=== PATIENT | male | born 2000 | race Caucasian/White ===

== ENCOUNTER 2023-01-17 12:45 | Outpatient (RCR) | payer OTHER, SELFPAY ==
--- NOTE | 2022-12-16 13:49 | HO.PHP ---
12/06/2022 : This medical underwriter met with patient to complete an intake assessment for PHP treatment. This medical underwriter met with patient,explained PHP and discussed treatment,patient stated that he did not think PHP was appropriate for him and wanted to end the intake. Patient stated that if this had been in August,he would have engaged then,he stated that he does not feel he needs PHP level of care at this time. This medical underwriter provided him with information regarding the PHP treatment program and informed him that if he would like to engage in PHP in the future to please contact the program.
[2023-01-15 13:09] VITALS: BP 127/83; PULSE 50; TEMP 37.6
[2023-01-15 13:11] VITALS: BMI 24.2
--- NOTE | 2023-01-15 14:56 | PC.ADMIT ---
Patient is a 22 year old single male who self referred to PHP d/t increased depression sxs and passive SI, no plan or intent. He reports having issue with his mother who is always yelling at him thus is currently living with his grandmother and reports relationship issues with others. Reports when in high school and college his peers would make things up about him that were not true and his peers would believe it is true. This is quite distressing for him. Patient stated he feels at times that, Everybody hates me He did state, I got a few friends now . Has plans on going hiking with friend from kindergarten today. Patient is alert and oriented x4. Calm and cooperative. Appears irritable at times. Reports using cannabis though out the day started using at age 16. Stated he would like to cut down his use. Reports minimal ETOH use drinking 2 shots a couple times a month. Stated no history of binge drinking or blacking out (per integrative assessment). Patient also reports using hallucinogens about six times a year and reported history of using Ketamine. Reports passive SI, no plan or intent to kill himself. Patient given a copy of his safety plan if needed and I reviewed this with him. Medications reconciled with patient and pharmacy. He is currently not on any prescription medications. History of Lexapro in October, stopped d/t SI.
--- NOTE | 2023-01-16 08:37 | HO.PHP ---
The client called out . He sates that he didn't sleep well last night and can not imagine being able to stay awake during groups. He states that he is safe.
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
--- NOTE | 2023-01-17 08:08 | HO.PHP ---
The clients case was reviewed and opened in treatment team
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
--- NOTE | 2023-01-17 16:40 | HO.PHP ---
I sat with Jim to call his parents. They had left a message to call them for help with how they can best help Jim. We spoke with his father and Jim told his father that seeing his dog would be helpful. They made a plan that Jim go to his parents home for the weekend because his mother will be out of town. Jim thanked his dad and after the conversation looked less depressed and his affect was brighter.
--- NOTE | 2023-01-20 10:02 | HO.PHP ---
[facility] staff reached out to Jim, in which his phone went right to . [facility] staff left a asking Jim to contact the clinician back to verify he is safe due to him not showing up for program today.
--- NOTE | 2023-01-20 10:07 | HO.PHP ---
[facility] staff reached out to Jim's emergency contact, who is his father. Jim's father informed the clinician that Jim is currently awaiting a bed and is at [facility]. Jim's father explored if there is any way to expedite the bed search and asked if the clinician could go to the ED to talk to them about that. [facility] staff informed the father if he would like to follow up with the status regarding the bed placement, he would have to reach out. The father asked if we visit the clients when they go into inpatient level of care. PHP staff stated we do not and noted that is a higher level of care. [facility] staff voiced that if Jim is discharged back home today, then he can return to the program tomorrow. [facility] staff expressed if he goes into a higher level of care, he will be discharged from the program and they can contact the program back to be referred. The father explored if he would have to go through the intake again and waiting process. [facility] staff disclosed he would have to go through the intake and we will try to get him back into the program as quickly as possible. Jim's father shared his concerns around his sons mental health. [facility] empathized with the father and listened.
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
== END 2023-01-17 23:59 | disposition home or self-care (01) ==
LOC: HO.PHPA 12:45
PROVIDERS: Visit Provider Psychiatry & Neurology Psychiatry
DX: F33.2 Major depressive disorder, recurrent severe without psychotic features (principal); F12.20 Cannabis dependence, uncomplicated; F16.90 Hallucinogen use, unspecified, uncomplicated
CPT/HCPCS: 90791; 90853

== ENCOUNTER → 2023-01-17 12:45 | Outpatient (BNV) | payer OTHER, SELFPAY | PROVIDERS: Visit Provider Psychiatry & Neurology Psychiatry | DX: F33.2 Major depressive disorder, recurrent severe without psychotic features (principal); F12.20 Cannabis dependence, uncomplicated; F16.90 Hallucinogen use, unspecified, uncomplicated | CPT/HCPCS: 90792 ==

== ENCOUNTER 2023-01-18 15:30 | Inpatient (IN) | payer OTHER, SELFPAY ==
[2023-01-18 15:50] VITALS: BP 156/88; PULSE 56; RESP 18; TEMP 36.6; O2SAT 100; BMI 26.0
--- NOTE | 2023-01-18 16:37 | ED_ITS ---
HPI - Psych General Chief Complaint: Psychiatric Symptoms Stated Complaint: Crisis, SI Time Seen by Provider: 01/18/23 16:05 Source: patient Mode of arrival: EMS Limitations: no limitations History of Present Illness HPI Narrative: Patient comes to the emergency room via ambulance. Patient states that he has had a lot of resentment to a lot of people. Patient states that he would like to wipe them off the planet and then kill himself. Patient states that he would slit his wrist and jump of bridge. Patient states he has been having stresses at home. Patient has poor the [employer] with his mother. Patient lives with his grandmother. Related Data Home Medications Medication Instructions Recorded Confirmed No Known Home Meds 01/15/23 01/15/23 Allergies Allergy/AdvReac Type Severity Reaction Status Date / Time Sulfa (Sulfonamide Allergy Rash Verified 01/15/23 13:08 Antibiotics) Review of Systems Review of Systems: Constitutional : No Weight loss, No Fever, No Chills, No Night Sweats, No Fatigue, No Malaise ENT/Mouth : No Hearing loss, No Ear Pain, No Nasal Congestion, No Sinus Pain, No Hoarseness, No sore throat, No Rhinorrhea, No Swallowing Difficulty Eyes: No Eye Pain, No Swelling, No Redness, No Foreign Body, No Discharge, No Vision Changes Cardiovascular : No Chest Pain, No SOB, No Dyspnea on Exertion, No Orthopnea, No Edema, No Palpitations Respiratory : No Cough, No Sputum, No Wheezing, No Smoke Exposure, No Dyspnea Gastrointestinal : No Nausea, No Vomiting, No Diarrhea, No Constipation, No abdominal Pain, No Hematochezia, No Melena Genitourinary : no irregular bleeding, No Dysuria, No Urinary Frequency, No Hematuria, No Urinary Incontinence, No Urgency, No Flank Pain, No Urinary Flow Changes, No Hesitancy Musculoskeletal : No joint pain, No Myalgias, No Joint Swelling Skin : No Skin Lesions, No rash Neuro : No Weakness, No Numbness, No Paresthesias, No Loss of Consciousness, No Dizziness, No Headache Psych : Complaining of SI and HI Heme/Lymph: No Bruising, No Bleeding,No Lymphadenopathy Endocrine : No Polyuria, No Polydipsia, No Temperature Intolerance PMFSH Past Medical History Medical History (Updated 01/18/23 @ 16:41 by Jennifer Kemp MD) Cannabis use disorder, severe, dependence Generalized anxiety disorder Hallucinogen use Major depressive disorder, recurrent severe without psychotic features No known health problems Social History Social History Household Members: Other Household Members Other:: Grandparents Patient Tobacco Use Status: Current everyday Tobacco user Advance Directives: No Advance Directives Information Provided: Yes Physical Exam Vital Signs: Vital Signs: Last Vital Signs Temp 98 F 01/18/23 15:50 Pulse 56 01/18/23 15:50 Resp 18 01/18/23 15:50 BP 156/88 H 01/18/23 15:50 Pulse Ox 100 01/18/23 15:50 O2 Del Method Room Air 01/18/23 15:50 BMI result Body Mass Index 26.0 Const: Other: Appearance: Alert. Oriented X3. No acute distress. Eyes: Pupils equal, round and reactive to light. ENT: Pharynx normal. Neck: Normal inspection. Neck supple. No lymph nodes noted. No crepitus CVS: Normal heart rate and rhythm. Pulses normal. Normal S1 and S2 Respiratory: No respiratory distress. Breath sounds normal. No Wheezing. No rales Abdomen: Soft and nontender. No rigidity. No distention. Skin: Skin warm and dry. Normal skin color. Normal skin turgor. Extremities: No lower extremity edema. No Lacerations. No Rash Neuro: Oriented X 3. No motor deficit. No sensory deficit. Moving all extremities. No slurred speech. CN 2 through 12 grossly intact Psych: calm, cooperative, normal affect Course Course Course Narrative: -all of patient's labs are pending -patient is on a one-to-one, patient is on a Section 12 -care team consult pending -physician observation started at 16:39 Discharge Plan Discharge Clinical Impression: Major depressive disorder, recurrent severe without psychotic features Patient Disposition: Still a Patient Prescriptions: No Action No Known Home Meds
[2023-01-18 16:49] LABS: MANUAL DIFF FLAG NO
[2023-01-18 16:52] LABS: Basophils Percent Auto 0.5 % (0-2); Eosinophils Absolute Auto 0.1 X10*3/uL (0.0-0.4); Eosinophils Percent Auto 1.1 % (0-4); Hematocrit 41.5 % (42.0-52.0); Hemoglobin 14.6 g/dl (14.0-18.0); Imm Gran Abs Auto 0.02 X10*3/uL (0.00-0.03); Imm Gran Pct Auto 0.3 % (0.0-0.4); Lymphocytes Absolute Auto 2.2 X10*3/uL (1.2-4.9); Mean Corpuscular HGB Conc 35.2 g/dl (31.0-36.0); Mean Corpuscular Hemoglobin 30.6 pg (27.0-33.0); Mean Platelet Volume 9.7 fL (9.4-12.4); Monocytes Absolute Auto 0.5 X10*3/uL (0.1-1.2); Monocytes Percent Auto 6.6 % (2-11); Neutrophils Percent Auto 63.5 % (45-73); Platelet Count 237 X10*3/uL (160-400); Red Blood Count 4.77 X10*6/uL (4.60-5.80); Red Cell Distribution Width 12.3 % (11.0-16.0); White Blood Count 7.8 X10*3/uL (4.8-10.8)
[2023-01-18 17:05] LABS: Alanine Aminotransferase 12 U/L (0-40); Albumin Level 4.7 g/dL (3.5-5.0); Alkaline Phosphatase 64 U/L (39-117); Anion Gap 13 (12-20); Aspartate Amino Transferase 13 U/L (5-37); Bilirubin Direct 0.2 mg/dL (0.0-0.5); Bilirubin Total 0.5 mg/dL (0.0-1.0); Blood Urea Nitrogen 15 mg/dL (9-16); Calcium 9.8 mg/dL (8.4-10.2); Carbon Dioxide 26 mmol/L (22-29); Chloride 105 mmol/L (96-108); Estimated Glomerular Filt Rate > 60; Ethanol < 10 mg/dL; Glucose Random 89 mg/dL (60-115); Potassium 4.1 mmol/L (3.3-5.1); Sodium 140 mmol/L (135-145); Total Protein 7.6 g/dL (6.5-8.0)
[2023-01-18 17:47] VITALS: RESP 14
[2023-01-18 18:30] LABS: Amphetamine Screen Urine Not Detected (Not Detect); Barbiturates, Urine Not Detected (Not Detect); Benzodiazepines Screen Urine Not Detected (Not Detect); Cannabinoid Screen Urine POSITIVE (Not Detect); Cocaine Screen Urine Not Detected (Not Detect); Fentanyl, urine Not Detected (Not Detect); Opiate Screen Urine Not Detected (Not Detect); Phencyclidine Screen Urine Not Detected (Not Detect)
[2023-01-18] MEDS: LORazepam 1 MG TABLET 2 MG PO (19:22)
--- NOTE | 2023-01-18 19:26 | PC.NURSE ---
pt assessed, calm cooperative, medicated with ativan po, father at bedside
[2023-01-18 22:20] VITALS: BP 137/79; PULSE 58; RESP 14; TEMP 36.4; O2SAT 98
--- NOTE | 2023-01-18 23:32 | PC.NURSE ---
pt observed sleeping, sitter present
--- NOTE | 2023-01-19 01:26 | PC.NURSE ---
verbal report given to staff
--- NOTE | 2023-01-19 01:37 | MHC.EDTECH ---
belongings locked in locker #6.
--- NOTE | 2023-01-19 07:09 | PC.NURSE ---
Patient slept through the night, calm and cooperative, behavior non concerning, care consult ordered/pending evaluation, VSS, med rec completed/pending provider's approval, VSS, will continue to monitor.
--- NOTE | 2023-01-19 11:42 | MHC.CARE ---
RAD Team conducted an external [facility] bed search for this individual, however, there are no beds available across the state for today. The search is exhausted and will be revisted tomorrow if deemed necessary.
[2023-01-19 15:36] LABS: Appearance Urine Clear; Color Urine Yellow; Glucose Urine UA Negative (Negative); Leukocyte Esterase Urine Negative (Negative); Nitrite Urine Negative (Negative); Urine Blood Negative (Negative); Urine Ketones Negative (Negative); Urine Protein Negative (Neg-Trace)
[2023-01-19] MEDS: LORazepam 1 MG TABLET 2 MG PO (15:41)
[2023-01-19 15:56] LABS: COVID-19 Test Negative (Negative); IDNOW Serial# BCCEAD1C
[2023-01-19 18:32] VITALS: BP 124/63; PULSE 80; RESP 14; TEMP 36.4; O2SAT 99
[2023-01-19] MEDS: traZODone HCL 100 MG TABLET PO (22:24)
[2023-01-20 00:06] VITALS: BP 115/60; PULSE 57; RESP 15; TEMP 36.6; O2SAT 97
[2023-01-20 11:03] VITALS: BP 118/67; PULSE 60; RESP 16; TEMP 36.8; O2SAT 98
--- NOTE | 2023-01-20 11:13 | PC.NURSE ---
PT IS A/O X 4 NO SOB/ASHWIN NOTED SPEAKS IN FULL SENTENCES. PT IS NOW AWAKE AND STATES THAT HE IS +SI. PT REFUSED IS AM MED (LEXAPRO) STATING THAT HE HAS NOT TAKING THIS MED IN MONTHS.
--- NOTE | 2023-01-20 12:40 | MHC.EDTECH ---
pt took a shower and was provided the tools for oral hygiene, clean linen given, rn aware
--- NOTE | 2023-01-20 13:35 | PC.NURSE ---
RN TO RN GIVEN TO LARRY. PT AWARE OF PLAN OF CARE FOR TRANSFER TO [facility].
--- NOTE | 2023-01-20 15:02 | PC.NURSE ---
PT TRANSFERRED TO [facility] VIA W/C WITH AND LARRY (RN). PT AWARE OF PLAN OF CARE. ALL BELONGINGS SENT WITH THE PT.
[2023-01-20 15:34] VITALS: BP 123/78; PULSE 70; RESP 18; TEMP 36.8; O2SAT 99
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
[2023-01-20 18:46] VITALS: BMI 23.5
[2023-01-20 19:50] VITALS: BP 129/78; PULSE 68; RESP 16; TEMP 36.6; O2SAT 98
[2023-01-20] MEDS: traZODone HCL 50 MG TABLET PO ×2 (20:50→23:10)
[2023-01-20] MEDS: Nicotine Polacrilex 2 MG GUM 4 MG BUCCAL (22:36)
[2023-01-21 09:55] LABS: Estimated Average Glucose 88 mg/dL; Hemoglobin A1c % 4.7 %
[2023-01-21 10:10] LABS: Alanine Aminotransferase 11 U/L (0-40); Albumin Level 4.1 g/dL (3.5-5.0); Alkaline Phosphatase 59 U/L (39-117); Anion Gap 10 (12-20); Aspartate Amino Transferase 13 U/L (5-37); Bilirubin Total 0.3 mg/dL (0.0-1.0); Blood Urea Nitrogen 14 mg/dL (9-16); Calcium 9.2 mg/dL (8.4-10.2); Carbon Dioxide 27 mmol/L (22-29); Chloride 106 mmol/L (96-108); Cholesterol 141 mg/dL; Creatinine Clr Calc Pharmacy 131.1; Estimated Glomerular Filt Rate > 60; Glucose Fasting 93 mg/dL (60-99); HDL Cholesterol 31 mg/dL; LDL Cholesterol Calculated 78 mg/dl; Potassium 3.9 mmol/L (3.3-5.1); Sodium 139 mmol/L (135-145); Total Protein 6.7 g/dL (6.5-8.0); Triglycerides 163 mg/dL
[2023-01-21 10:24] LABS: Free T4 (Free Thyroxine) 0.99 ng/dL (0.71-1.85); Thyroid Stimulating Hormone 2.93 uIU/mL (0.32-4.0)
[2023-01-21 10:40] LABS: Folate 7.1 ng/mL (> or = 4.0); Vitamin B12 387 pg/mL (200-900)
[2023-01-21 11:46] VITALS: BP 137/83; PULSE 70; TEMP 36.2; O2SAT 98
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
[2023-01-21 20:30] VITALS: BP 141/88; PULSE 81; RESP 16; TEMP 36.7; O2SAT 96
[2023-01-21] MEDS: Nicotine Polacrilex Lozenge 4 MG LOZENGE BUCCAL (21:26)
[2023-01-21] MEDS: traZODone HCL 50 MG TABLET PO (23:32)
[2023-01-22] MEDS: traZODone HCL 50 MG TABLET PO (00:19)
[2023-01-22 09:59] VITALS: BP 145/83; PULSE 72; TEMP 36.6; O2SAT 97
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
[2023-01-22 20:00] VITALS: BP 133/81; PULSE 72; RESP 18; TEMP 36.1; O2SAT 97
[2023-01-22] MEDS: traZODone HCL 100 MG TABLET PO (23:18)
[2023-01-22] MEDS: Calcium Carbonate 750 MG TAB.CHEW PO (23:52)
== END 2023-01-23 11:52 | disposition home or self-care (01) | DRG 885 ==
LOC: HO.ED 01-19 01:25 → HO.PADLT16 01-20 13:44
PROVIDERS: Emergency Medicine Emergency Medical Services; Admitting Provider Psychiatry & Neurology Psychiatry; Emergency Provider Emergency Medicine; Visit Provider Psychiatry & Neurology Psychiatry
DX: F33.2 Major depressive disorder, recurrent severe without psychotic features (principal); R45.851 Suicidal ideations; F41.1 Generalized anxiety disorder; R45.850 Homicidal ideations; F12.20 Cannabis dependence, uncomplicated; F17.210 Nicotine dependence, cigarettes, uncomplicated; Z71.6 Tobacco abuse counseling; Z20.822 Contact with and (suspected) exposure to COVID-19; Z88.2 Allergy status to sulfonamides; Z79.899 Other long term (current) drug therapy
CPT/HCPCS: 36415; 80048; 80053; 80061; 80076; 80307; 81003; 82607; 82746; 83036; 84439; 84443; 85025; 87635; 99285; S9485

== ENCOUNTER → 2023-01-20 13:35 | Outpatient (BNV) | payer OTHER, SELFPAY | PROVIDERS: Admitting Provider Psychiatry & Neurology Psychiatry; Emergency Provider Emergency Medicine; Visit Provider Psychiatry & Neurology Psychiatry | DX: F33.2 Major depressive disorder, recurrent severe without psychotic features (principal); F12.20 Cannabis dependence, uncomplicated; F16.90 Hallucinogen use, unspecified, uncomplicated | CPT/HCPCS: 90792; 99239 ==